=== PATIENT | female | born 1980 | race Caucasian/White ===

== ENCOUNTER 2016-11-06 14:24 | Emergency (ER) | payer MEDICAID ==
[2016-11-06 15:08] LABS: BASO % 0.2 % (0-6); EOS % 0.5 % (0-6); GRAN % 70.2 % (47-80); HEMATOCRIT 41.8 % (35.0-47.0); HEMOGLOBIN 14.1 gm/dl (11.6-16.0); LYMPH % 25.1 % (16-45); MEAN CELL VOLUME 89.3 fl (81-97); MEAN CORPUSCULAR HEMOGLOBIN 30.1 pg (27-33); MEAN CORPUSCULAR HGB CONC 33.7 g/dl (32-36); MEAN PLATELET VOLUME 10.2 fl (7.4-10.4); PLATELET COUNT 179 K/uL (130-400); RED BLOOD COUNT 4.68 M/uL (3.80-5.40); RED CELL DISTRIBUTION WIDTH 14.1 % (11.5-14.5); URINE APPEARANCE CLEAR; URINE BILIRUBIN NEGATIVE (NEGATIVE); URINE BLOOD NEGATIVE (NEGATIVE); URINE COLOR YELLOW; URINE GLUCOSE (UA) NEGATIVE (NEGATIVE); URINE KETONE NEGATIVE (NEGATIVE); URINE LEUKOCYTE ESTERASE NEGATIVE (NEGATIVE); URINE NITRITE NEGATIVE (NEGATIVE); URINE PROTEIN NEGATIVE (NEGATIVE); URINE UROBILINOGEN 0.2 E.U./dL (0.20 - 1.00); WHITE BLOOD COUNT W/O DIFF 9.7 K/uL (4.2-12.2)
[2016-11-06 15:20] LABS: ANION GAP 10.6 (7-16); BLOOD UREA NITROGEN 8 mg/dL (7-17); CARBON DIOXIDE 25.4 mmol/L (22-30); CREATININE 0.8 mg/dL (0.52-1.04); EST GLOMERULAR FILTRATION RATE > 60 ml/min; GLUCOSE,RANDOM 94 mg/dL (70-110)
--- NOTE | 2016-11-06 16:43 | Emergency Department Record ---
History of Present Illness - General Chief complaint: Pain Stated complaint: RT SIDE NECK PAIN,LT SIDE KIDNEY PAIN Time Seen by Provider: 11/06/16 14:42 Source: Patient Mode of Arrival: Ambulatory Limitations: No limitations - History of Present Illness Initial comments: pt woke up with severe r neck pain and l kidney pain Complaint: Neck Pain Onset/Timin -: Days(s) Location: Left, Right, Other History of Same: Yes Severity scale (1-10): 8 Quality: Stabbing Consistency: Constant Improves with: Nothing Worsens with: Nothing Associated Symptoms: Denies other symptoms, Other - Related Data Home Medications Medication Instructions Recorded Confirmed Last Taken No Home Med [NO HOME MEDS] 11/06/16 11/06/16 Unknown Allergies Allergy/AdvReac Type Severity Reaction Status Date / Time latex Allergy RASH Verified 04/17/16 13:17 hydrocodone AdvReac Severe HEADACHE Verified 04/17/16 13:17 Travel Screening - Travel/Exposure Within Last 30 Days Have you traveled within the last 30 days?: No Review of Systems Reviewed: No additional complaints except as noted below Constitutional: Reports: As per HPI. Denies: Chills, Fever, Malaise, Night sweats, Weakness, Weight change Eyes: Reports: As per HPI. Denies: Eye discharge, Eye pain, Photophobia, Vision change ENT: Reports: As per HPI. Denies: Congestion, Dental pain, Ear pain, Epistaxis , Hearing loss, Throat pain Respiratory: Reports: As per HPI. Denies: Cough, Dyspnea, Hemoptysis, Stridor, Wheezes Cardiovascular: Reports: As per HPI. Denies: Arrhythmia, Chest pain, Dyspnea on exertion, Edema, Murmurs, Orthopnea, Palpitations, Paroxysmal nocturnal dyspnea, Rheumatic Fever, Syncope Endocrine: Reports: As per HPI. Denies: Fatigue, Heat or cold intolerance, Polydipsia, Polyuria Gastrointestinal: Reports: As per HPI. Denies: Abdominal pain, Constipation, Diarrhea, Hematemesis, Hematochezia, Melena, Nausea, Vomiting Genitourinary: Reports: As per HPI. Denies: Abnormal menses, Discharge, Dyspareunia, Dysuria, Frequency, Hematuria, Incontinence, Retention, Urgency Musculoskeletal: Reports: As per HPI. Denies: Arthralgia, Back pain, Gout, Joint swelling, Myalgia, Neck pain Skin: Reports: As per HPI. Denies: Bruising, Change in color, Change in hair/ nails, Lesions, Pruritus, Rash Neurological: Reports: As per HPI. Denies: Abnormal gait, Confusion, Headache, Numbness, Paresthesias, Seizure, Tingling, Tremors, Vertigo, Weakness Psychiatric: Reports: As per HPI. Denies: Anxiety, Auditory hallucinations, Depression, Homicidal thoughts, Suicidal thoughts, Visual hallucinations Hematological/Lymphatic: Reports: As per HPI. Denies: Anemia, Blood Clots, Easy bleeding, Easy bruising, Swollen glands Past Medical History - SOCIAL HISTORY Smoking Status: Current every day smoker Alcohol Use: None Drug Use: None - RESPIRATORY Hx Respiratory Disorders: No - CARDIOVASCULAR Hx Cardio Disorders: No - NEURO Hx Neuro Disorders: No - GI Hx GI Disorders: No - Hx Genitourinary Disorders: Yes Hx Kidney Stones: Yes - ENDOCRINE Hx Endocrine Disorders: No - MUSCULOSKELETAL Hx Musculoskeletal Disorders: No - PSYCH Hx Psych Problems: No - HEMATOLOGY/ONCOLOGY Hx Hematology/Oncology Disorders: No Family Medical History Any Significant Family History?: Yes Hx Kidney Disease: Father, Grandparents Hx Stroke: Father Physical Exam - General General Appearance: Alert, Oriented x3, Cooperative, Mild distress - Head Head exam: Normal inspection - Eye Eye exam: Normal appearance, PERRL, EOMI Pupils: Normal accommodation - ENT ENT exam: Normal exam, Mucous membranes moist, Normal external ear exam, Normal orophraynx Ear exam: Normal external inspection. negative: External canal tenderness Nasal Exam: Normal inspection. negative: Discharge, Sinus tenderness Mouth exam: Normal external inspection, Tongue normal Teeth exam: Normal inspection. negative: Dental caries Throat exam: Normal inspection. negative: Tonsillar erythema, Tonsillar exudate - Neck Neck exam: Normal inspection, Full ROM, Tenderness (on r anterior) - Respiratory Respiratory exam: Normal lung sounds bilaterally. negative: Respiratory distress - Cardiovascular Cardiovascular Exam: Regular rate, Normal rhythm, Normal heart sounds - GI/Abdominal GI/Abdominal exam: Soft, Normal bowel sounds. negative: Tenderness - Rectal Rectal exam: Deferred - exam: Deferred - Extremities Extremities exam: Normal inspection, Full ROM, Normal capillary refill. negative: Tenderness - Back Back exam: Reports: Normal inspection, Full ROM. Denies: Muscle spasm, Rash noted, Tenderness - Neurological Neurological exam: Alert, CN II-XII intact, Normal gait, Oriented X3 - Psychiatric Psychiatric exam: Normal affect, Normal mood - Skin Skin exam: Dry, Intact, Normal color, Warm Course Vital Signs 11/06/16 14:32 Temperature 98.2 F Pulse Rate 85 Respiratory 20 Rate Blood Pressure 123/76 Pulse Ox 98 - Reevaluation(s) Reevaluation #1: 11/06/16 17:27 cat scans are neg for acute Medical Decision Making - Lab Data Result diagrams: 11/06/16 15:00 11/06/16 15:00 Lab Results 11/06/16 11/06/16 11/06/16 Range/Units 15:00 15:00 15:00 WBC 9.7 (4.2-12.2) K/uL RBC 4.68 (3.80-5.40) M/uL Hgb 14.1 (11.6-16.0) gm/dl Hct 41.8 (35.0-47.0) % MCV 89.3 (81-97) fl MCH 30.1 (27-33) pg MCHC 33.7 (32-36) g/dl RDW 14.1 (11.5-14.5) % Plt Count 179 (130-400) K/uL MPV 10.2 (7.4-10.4) fl Gran % 70.2 (47-80) % Lymphocytes % 25.1 (16-45) % Monocytes % 4.0 (0-9) % Eosinophils % 0.5 (0-6) % Basophils % 0.2 (0-6) % Sodium 142 (136-145) mmol/L Potassium 3.8 (3.5-5.1) mmol/L Chloride 106 (98-107) mmol/L Carbon Dioxide 25.4 (22-30) mmol/L Anion Gap 10.6 (7-16) BUN 8 (7-17) mg/dL Creatinine 0.8 (0.52-1.04) mg/dL Estimated GFR > 60 ml/min Random Glucose 94 (70-110) mg/dL Calcium 9.7 (8.5-10.1) mg/dL Urine Color Yellow Urine Appearance Clear Urine pH 7.0 (5.0-8.0) Ur Specific [place] <= 1.005 (1.002-1.030) Urine Protein Negative (NEGATIVE) Urine Glucose (UA) Negative (NEGATIVE) Urine Ketones Negative (NEGATIVE) Urine Blood Negative (NEGATIVE) Urine Nitrite Negative (NEGATIVE) Urine Bilirubin Negative (NEGATIVE) Urine Urobilinogen 0.2 (0.20 - 1.00) E.U./dL Ur Leukocyte Esterase Negative (NEGATIVE) Disposition Disposition: Discharge Clinical Impression: Neck pain, Flank pain Disposition: Home, Self-Care Condition: (1) Good Instructions: Flank Pain (ED) Additional Instructions: follow up with family doctor. return sooner if worse Forms: Patient Portal Access
[2016-11-06] MEDS ORDERED: KETOROLAC 30 MG/ML VIAL IVP ONE (17:24)
[2016-11-06] MEDS ORDERED: PROMETHAZINE HCL 25 MG/ML VIAL IVP ONE (17:24)
[2016-11-06] MEDS ORDERED: HYDROMORPHONE HCL 1 MG/ML CPJ IVP ONE (17:25)
--- NOTE | 2016-11-08 13:45 | CT SCAN REPORT ---
EXAM: CT OF THE NECK WITH CONTRAST HISTORY: SEVERE RIGHT SIDED NECK PAIN BEGINNING TWO DAYS AGO. THE PAIN TRAVELS SUPERIORLY INTO THE HEAD. TECHNIQUE: Contrast enhanced helical CT examination of the neck was performed with 100 ml of Omnipaque 300 utilized. Coronal and sagittal reformatted images were generated and reviewed. Comparison: None. FINDINGS: No mucosal pharyngeal space abnormality is identified though evaluation of the larynx is mildly limited as the glottis is closed. The parotid glands and submandibular glands are symmetric and normal in appearance. The thyroid gland is normal in size and enhances homogeneously. No cervical mass nor adenopathy is seen. There is minimal sclerosis of the carotid bulbs without evidence of clinically significant stenosis. No destructive bone lesion is seen. There is a focus of sclerosis within the superior aspect of the T4 vertebral body, incompletely imaged measuring 9 mm in diameter. This is nonspecific though a bone island is the most likely etiology. There is a large retention cyst suggested within the right maxillary sinus and a small retention cyst in the left maxillary sinus. Mild mucosal thickening is present within several bilateral ethmoid air cells and within the sphenoid sinuses. Minor biapical lung scarring is present. The visualized upper lungs are otherwise clear. IMPRESSION: 1. NO CT EVIDENCE OF SUSPICIOUS MASS NOR ACUTE ABNORMALITY OF THE NECK. 2. INCOMPLETELY IMAGED ROUNDED AREA OF SCLEROSIS IN THE SUPERIOR ASPECT OF THE T4 VERTEBRAL BODY MEASURING AT LEAST 9 MM IN DIAMETER. THIS IS NONSPECIFIC, BUT LIKELY A BONE ISLAND. 3. MINOR ATHEROSCLEROSIS OF THE CAROTID BULBS WITHOUT CLINICALLY SIGNIFICANT STENOSIS. JOB NUMBER: [id number] MTDD
--- NOTE | 2016-11-08 14:11 | CT SCAN REPORT ---
EXAM: CT OF THE ABDOMEN AND PELVIS WITHOUT CONTRAST HISTORY: LEFT FLANK PAIN FOR ONE DAY. TECHNIQUE: Thin collimation helical CT examination of the abdomen and pelvis was performed without oral or intravenous contrast administration. Lack of oral and IV contrast utilization limits evaluation of the bowel and solid viscera respectively. Comparison: CT of the abdomen and pelvis without contrast dated 01/05/16. FINDINGS: The lung bases are clear with the exception of minimal linear scarring versus atelectasis in the lateral right lung base. No pleural or pericardial effusion. The heart is not enlarged. The liver, spleen, pancreas and adrenal glands to the extent visualized are normal in appearance. The kidneys remain normal in size, position and are smoothly marginated. No nephrolithiasis nor renal mass is seen. The renal collecting systems are normal in caliber throughout. No ureteral calculus visualized. No intrinsic urinary bladder abnormality identified. The uterus is retroflexed/retroverted. A small amount of free fluid is noted in the cul-de-sac. This is nonspecific though likely physiologic. Follicles are suggested in each ovary with the largest on the right measuring 1.6 cm in diameter. No gross bowel dilatation nor bowel wall thickening is seen. The appendix is visualized and is normal in appearance. Cholesterol gallstones are redemonstrated without gallbladder wall thickening or pericholecystic fluid. 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 IMPRESSION: 1. NO CT EVIDENCE OF AN ACUTE INTRAABDOMINAL NOR INTRAPELVIC PROCESS. SPECIFICALLY, THERE IS NO EVIDENCE OF OBSTRUCTIVE UROPATHY. 2. SMALL AMOUNT OF FREE FLUID IN THE CUL-DE-SAC IS NONSPECIFIC, BUT LIKELY PHYSIOLOGIC. BILATERAL OVARIAN FOLLICLES WITH THE LARGEST LOCATED ON THE RIGHT MEASURING 1.6 CM IN DIAMETER. 3. NORMAL APPENDIX. 4. CHOLELITHIASIS REDEMONSTRATED. JOB NUMBER: [id number] MTDD
== END 2016-11-06 18:07 | disposition home or self-care (01) ==
LOC: ER 14:24
DX: M54.2 Cervicalgia (principal); R10.32 Left lower quadrant pain; Z87.442 Personal history of urinary calculi
CPT/HCPCS: 99284 ×2; 96374; 96375; 85025; 80048; 81003; 70491; 74176; Q9967; J1885; J1170; J2550

== ENCOUNTER 2017-08-17 22:39 | Emergency (ER) | payer MEDICAID ==
[2017-08-17] MEDS ORDERED: ONDANSETRON HCL IV 4 MG/2 ML VIAL IV ONE (22:59)
[2017-08-17] MEDS ORDERED: 0.9 % SODIUM CHLORIDE 1,000 ML BAG IV ONE (22:59)
[2017-08-17] MEDS ORDERED: KETOROLAC 30 MG/ML VIAL IVP ONE (22:59)
--- NOTE | 2017-08-17 23:01 | Emergency Department Record ---
History of Present Illness - General Chief Complaint: Abdominal Pain Stated Complaint: L SIDE ABD PAIN Time Seen by Provider: 08/17/17 22:59 Source: Patient Mode of Arrival: Ambulatory - History of Present Illness Initial Comments: The patient states she has a history of kidney stones and thinks that a kidney stone is stuck because of left flank pain into her groin that has been present for over 24 hours. She denies f,c, URI symptoms, vomiting or diarrhea. She is nauseated and is currently on her menses. MD Complaint: Flank pain Onset/Timin -: Days(s) Location: L Flank Radiation: LLQ Migration to: No migration Severity: Moderate Quality: Sharp Consistency: Intermittent Improves With: Nothing Worsens With: Nothing Associated Symptoms: Nausea, Vomiting - Related Data Patient : No Previous Rx's Medication Instructions Recorded Dicyclomine HCl [Bentyl] 10 mg PO Q8H #10 cap 08/18/17 Ondansetron [Zofran Odt] 4 mg PO Q8H #10 tab.rapdis 08/18/17 Allergies Allergy/AdvReac Type Severity Reaction Status Date / Time latex Allergy RASH Verified 04/17/16 13:17 hydrocodone AdvReac Severe HEADACHE Verified 04/17/16 13:17 Travel Screening - Travel/Exposure Within Last 30 Days Have you traveled within the last 30 days?: No - Travel/Exposure Within Last Year Have you traveled outside the [place] in the last year?: No - Additonal Travel Details Have you been exposed to anyone with a communicable illness?: No Review of Systems Reviewed: No additional complaints except as noted below Constitutional: Reports: As per HPI. Denies: Chills, Fever, Malaise, Night sweats, Weakness, Weight change Eyes: Reports: As per HPI. Denies: Eye discharge, Eye pain, Photophobia, Vision change ENT: Reports: As per HPI. Denies: Congestion, Dental pain, Ear pain, Epistaxis , Hearing loss, Throat pain Respiratory: Reports: As per HPI. Denies: Cough, Dyspnea, Hemoptysis, Stridor, Wheezes Cardiovascular: Reports: As per HPI. Denies: Arrhythmia, Chest pain, Dyspnea on exertion, Edema, Murmurs, Orthopnea, Palpitations, Paroxysmal nocturnal dyspnea, Rheumatic Fever, Syncope Endocrine: Reports: As per HPI. Denies: Fatigue, Heat or cold intolerance, Polydipsia, Polyuria Gastrointestinal: Reports: As per HPI. Denies: Abdominal pain, Constipation, Diarrhea, Hematemesis, Hematochezia, Melena, Nausea, Vomiting Genitourinary: Reports: As per HPI. Denies: Abnormal menses, Discharge, Dyspareunia, Dysuria, Frequency, Hematuria, Incontinence, Retention, Urgency Musculoskeletal: Reports: As per HPI. Denies: Arthralgia, Back pain, Gout, Joint swelling, Myalgia, Neck pain Skin: Reports: As per HPI. Denies: Bruising, Change in color, Change in hair/ nails, Lesions, Pruritus, Rash Neurological: Reports: As per HPI. Denies: Abnormal gait, Confusion, Headache, Numbness, Paresthesias, Seizure, Tingling, Tremors, Vertigo, Weakness Psychiatric: Reports: As per HPI. Denies: Anxiety, Auditory hallucinations, Depression, Homicidal thoughts, Suicidal thoughts, Visual hallucinations Hematological/Lymphatic: Reports: As per HPI. Denies: Anemia, Blood Clots, Easy bleeding, Easy bruising, Swollen glands Past Medical History - SOCIAL HISTORY Smoking Status: Current every day smoker Alcohol Use: None Drug Use: None - RESPIRATORY Hx Respiratory Disorders: No - CARDIOVASCULAR Hx Cardio Disorders: No - NEURO Hx Neuro Disorders: No - GI Hx GI Disorders: No - Hx Genitourinary Disorders: Yes Hx Kidney Stones: Yes - ENDOCRINE Hx Endocrine Disorders: No - MUSCULOSKELETAL Hx Musculoskeletal Disorders: No - PSYCH Hx Psych Problems: No - HEMATOLOGY/ONCOLOGY Hx Hematology/Oncology Disorders: No Family Medical History Any Significant Family History?: Yes Hx Kidney Disease: Father, Grandparents Hx Stroke: Father Physical Exam - General General Appearance: Alert, Oriented x3, Cooperative, No acute distress, Moderate distress - Head Head exam: Normal inspection - Eye Eye exam: Normal appearance, PERRL Pupils: Normal accommodation - ENT ENT exam: Normal exam, Mucous membranes moist, Normal external ear exam, Normal orophraynx, TM's normal bilaterally Ear exam: Normal external inspection. negative: External canal tenderness Nasal Exam: Normal inspection. negative: Discharge, Sinus tenderness Mouth exam: Normal external inspection, Tongue normal Teeth exam: Normal inspection. negative: Dental caries Throat exam: Normal inspection. negative: Tonsillar erythema, Tonsillar exudate - Neck Neck exam: Normal inspection, Full ROM. negative: Tenderness - Respiratory Respiratory exam: Normal lung sounds bilaterally. negative: Respiratory distress - Cardiovascular Cardiovascular Exam: Regular rate, Normal rhythm, Normal heart sounds - GI/Abdominal GI/Abdominal exam: Soft, Normal bowel sounds, Tenderness (Left abdomen into left flank tenderness) - Rectal Rectal exam: Deferred - exam: Deferred - Extremities Extremities exam: Normal inspection, Full ROM, Normal capillary refill. negative: Tenderness - Back Back exam: Reports: Normal inspection, CVA tenderness (L), Full ROM. Denies: Muscle spasm, Rash noted, Tenderness - Neurological Neurological exam: Alert, Normal gait, Oriented X3, Reflexes normal - Psychiatric Psychiatric exam: Normal affect, Normal mood - Skin Skin exam: Dry, Intact, Normal color, Warm Course Vital Signs 08/17/17 22:47 Temperature 98.3 F Pulse Rate 84 Respiratory 20 Rate Blood Pressure 112/76 Pulse Ox 100 - Reevaluation(s) Reevaluation #1: Patient states she does not feel any better. Patient given repeat exam: lungs clear, Left CVA tenderness as before. Abdomen soft without distention, no tenderness in an portion of right abdomen, or epigastrum. Her middle left abdomen and lateral left abdomen are her most tender areas. There is no rebound no rigidity. 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 Patient refused, states she is on her menses, and had her tubes tied years go with no problems /discharge. Her BM's have been regular, she has had 2 today, slightly loose. Will try a bentyl shot and further hydration.. 08/18/17 01:21 Reevaluation #2: Patient is improved with Bentyl and Iv fluids but is not 100%. She wishes to go home to ed and agrees to sees her PCP Dr. Cazares tomorrow in the office without fail. She agrees to return to an E. Dept. sooner if worsened. Will send her home with bentyl and zofran for home. 08/18/17 02:07 Medical Decision Making - Management Options MDM Management: No Additional Work-up Planned - Data Complexity MDM Data: Labs Ordered and/or Reviewed, X-Ray Ordered and/or Reviewed ( Noncontrast Abd/Pelvis CT:No acute bowel pathology deonstrated. Normal appendix. Multiple radiolucent gallstones. Gallbladder partially compressed. No biliary dilatation. Subtle findings of vague hazy fat stranding surrounding a fat appendage adjacent to the ascending colon. No urinary tract stones, hydronephrosis, or evidence of recent stone passage. Urinary bladder appears normal.) - Lab Data Result diagrams: 08/17/17 22:57 08/17/17 22:57 Disposition Disposition: Discharge Clinical Impression: Left sided abdominal pain of unknown cause Disposition: Home, Self-Care Condition: (2) Stable Instructions: Abdominal Pain (ED) Additional Instructions: Home to bed. Do not drive. Zofran as directed for nausea. Bentyl as directed if needed for adominal pain. Follow up with Dr. Cazares in his office Saturday without fail. Return to EDept of choice if worsened sooner. Prescriptions: Dicyclomine HCl [Bentyl] 10 mg PO Q8H #10 cap Ondansetron [Zofran Odt] 4 mg PO Q8H #10 tab.rapdis Quality - Quality Measures Quality Measures: N/A - Blood Pressure Screening Does Patient Have Any of the Following: No Blood Pressure Classification: Normal BP Reading Systolic Measurement: 112 Diastolic Measurement: 76 Screening for High Blood Pressure: < Normal BP, F/U Not Required > [G8783]
[2017-08-17 23:08] LABS: BASO % 0.2 % (0-6); EOS % 1.6 % (0-6); GRAN % 54.6 % (47-80); HEMATOCRIT 39.9 % (35.0-47.0); HEMOGLOBIN 13.5 gm/dl (11.6-16.0); LYMPH % 36.2 % (16-45); MEAN CELL VOLUME 88.3 fl (81-97); MEAN CORPUSCULAR HEMOGLOBIN 29.9 pg (27-33); MEAN CORPUSCULAR HGB CONC 33.8 g/dl (32-36); MONO % 7.4 % (0-9); PLATELET COUNT 200 K/uL (130-400); RED BLOOD COUNT 4.52 M/uL (3.80-5.40); RED CELL DISTRIBUTION WIDTH 14.2 % (11.5-14.5)
[2017-08-17 23:23] LABS: BLOOD UREA NITROGEN 8 mg/dL (6-20); CREATININE 0.7 mg/dL (0.5-0.9); EST GLOMERULAR FILTRATION RATE > 60 mL/min; GLUCOSE,RANDOM 107 mg/dL (74-109); LIPASE 23 U/L (13-60); URINE APPEARANCE CLEAR; URINE BILIRUBIN NEGATIVE (NEGATIVE); URINE BLOOD MODERATE (NEGATIVE); URINE COLOR YELLOW; URINE GLUCOSE (UA) NEGATIVE (NEGATIVE); URINE KETONE NEGATIVE (NEGATIVE); URINE LEUKOCYTE ESTERASE NEGATIVE (NEGATIVE); URINE NITRITE NEGATIVE (NEGATIVE); URINE PROTEIN NEGATIVE (NEGATIVE); URINE UROBILINOGEN 0.2 E.U./dL (0.20 - 1.00)
[2017-08-17 23:29] LABS: HCG,QUALITATIVE URINE NEGATIVE (NEGATIVE); URINE EPITHELIAL CELLS 0 - 2 (FEW); URINE RBC 0-2 (NONE SEEN); URINE WBC 0 - 2 (0-2/hpf)
[2017-08-18] MEDS ORDERED: ACETAMINOPHEN 1,000 MG/100 ML BTL IVPB ONE (00:26)
[2017-08-18 01:19] LABS: AMPHETAMINE SCREEN URINE NOT DETECTED; BARBITURATE SCREEN URINE NOT DETECTED; BENZODIAZEPINE SCREEN URINE NOT DETECTED; COCAINE SCREEN URINE NOT DETECTED; METHADONE SCREEN URINE NOT DETECTED; METHAMPHETAMINE SCREEN NOT DETECTED; OPIATE SCREEN URINE NOT DETECTED; OXYCODONE SCREEN URINE NOT DETECTED; PHENCYCLIDINE SCREEN URINE NOT DETECTED; PROPOXYPHENE SCREEN URINE NOT DETECTED; THC SCREEN URINE DETECTED; TRICYCLIC ANTIDEPRESSANT SCRN NOT DETECTED
[2017-08-18] MEDS ORDERED: DICYCLOMINE HCL 10 MG/ML AMPUL IM ONE (01:26)
[2017-08-18] MEDS ORDERED: 0.9 % SODIUM CHLORIDE 1,000 ML BAG IV ONE (01:27)
--- NOTE | 2017-08-19 08:52 | CT SCAN REPORT ---
EXAM: CT OF THE ABDOMEN AND PELVIS WITHOUT CONTRAST HISTORY: LEFT FLANK PAIN. TECHNIQUE: CT of the abdomen and pelvis was performed without oral or IV contrast. This limits evaluation of the bowel and solid visceral organs. Comparison: Prior CT from 11/06/16. FINDINGS: Limited evaluation of the lung bases is unremarkable. The osseous structures are grossly intact. Limited evaluation of the liver, spleen, adrenal glands, pancreas, and kidneys is unremarkable. Negative for urinary tract calculus or hydronephrosis. Multiple gallstones. No gross evidence for bowel obstruction. No free air or free fluid. Normal appendix. There is an approximately 11 x 11 mm fat density focus near the ascending colon with some minor surrounding inflammation. This could relate to epiploic appendagitis or omental infarct. This is a self limiting process. 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 IMPRESSION: 1. FINDINGS SUSPICIOUS FOR EPIPLOIC APPENDAGITIS OR OMENTAL INFARCT NEAR THE ASCENDING COLON. 2. CHOLELITHIASIS. JOB NUMBER: [id number] MTDD
== END 2017-08-18 02:19 | disposition home or self-care (01) ==
LOC: ER 22:39
DX: R10.32 Left lower quadrant pain (principal); R11.2 Nausea with vomiting, unspecified; Z87.442 Personal history of urinary calculi
CPT/HCPCS: 99284 ×2; 96374; 96372; 96375; 96361; 83690; 85025; 80048; 81001; 81025; 80305; 74176; J1885; J2405; J7030

== ENCOUNTER 2018-05-09 16:49 | Emergency (ER) | payer MEDICAID ==
[2018-05-09] MEDS ORDERED: ORPHENADRINE CITRATE 60MG/2ML VIAL IM ONE (17:28)
[2018-05-09] MEDS ORDERED: HYDROMORPHONE HCL 2 MG/ML VIAL IM ONE (17:28)
[2018-05-09] MEDS ORDERED: KETOROLAC 30 MG/ML VIAL IM ONE (17:28)
[2018-05-09] MEDS ORDERED: PROMETHAZINE HCL 25 MG/ML VIAL IM ONE (17:28)
--- NOTE | 2018-05-09 17:51 | Emergency Department Record ---
History of Present Illness - General Chief Complaint: Back Pain/Injury Stated Complaint: BACK PAIN Time Seen by Provider: 05/09/18 17:16 Source: Patient Mode of Arrival: Ambulatory Limitations: No limitations - History of Present Illness Initial Comments: pts back went out on her a few days ago when she got up from a chair. it hurts in her lower back and radiates down her l leg. she has intermittent numbness in her l foot. she is having no prob with urination and bowel movement MD Complaint: Back pain Onset/Timin -: Days(s) Similar Symptoms Previously: No Place: Home Radiation: Other Severity: Moderate Severity scale (1-10): 8 Quality: Aching Consistency: Constant Improves With: None Worsens With: None Context: Unknown Associated Symptoms: Denies other symptoms - Related Data Previous Rx's Medication Instructions Recorded Cyclobenzaprine HCl [Flexeril] 10 mg PO TID #14 tablet 05/09/18 Hydrocodone/APAP 5/325Mg [[place] 1 each PO Q6H #7 tab 05/09/18 5Mg/325Mg] Ibuprofen [Motrin 600Mg] 600 mg PO Q6H #20 tablet 05/09/18 Ondansetron [Zofran Odt] 4 mg PO Q8H #7 tab.rapdis 05/09/18 Allergies Allergy/AdvReac Type Severity Reaction Status Date / Time latex Allergy RASH Verified 05/09/18 16:59 hydrocodone AdvReac Severe HEADACHE Verified 05/09/18 16:59 Travel Screening - Travel/Exposure Within Last 30 Days Have you traveled within the last 30 days?: No Review of Systems Reviewed: No additional complaints except as noted below Constitutional: Reports: As per HPI. Denies: Chills, Fever, Malaise, Night sweats, Weakness, Weight change Eyes: Reports: As per HPI. Denies: Eye discharge, Eye pain, Photophobia, Vision change ENT: Reports: As per HPI. Denies: Congestion, Dental pain, Ear pain, Epistaxis , Hearing loss, Throat pain Respiratory: Reports: As per HPI. Denies: Cough, Dyspnea, Hemoptysis, Stridor, Wheezes Cardiovascular: Reports: As per HPI. Denies: Arrhythmia, Chest pain, Dyspnea on exertion, Edema, Murmurs, Orthopnea, Palpitations, Paroxysmal nocturnal dyspnea, Rheumatic Fever, Syncope Endocrine: Reports: As per HPI. Denies: Fatigue, Heat or cold intolerance, Polydipsia, Polyuria Gastrointestinal: Reports: As per HPI. Denies: Abdominal pain, Constipation, Diarrhea, Hematemesis, Hematochezia, Melena, Nausea, Vomiting Genitourinary: Reports: As per HPI. Denies: Abnormal menses, Discharge, Dyspareunia, Dysuria, Frequency, Hematuria, Incontinence, Retention, Urgency Musculoskeletal: Reports: As per HPI, Back pain. Denies: Arthralgia, Gout, Joint swelling, Myalgia, Neck pain Skin: Reports: As per HPI. Denies: Bruising, Change in color, Change in hair/ nails, Lesions, Pruritus, Rash Neurological: Reports: As per HPI. Denies: Abnormal gait, Confusion, Headache, Numbness, Paresthesias, Seizure, Tingling, Tremors, Vertigo, Weakness Psychiatric: Reports: As per HPI. Denies: Anxiety, Auditory hallucinations, Depression, Homicidal thoughts, Suicidal thoughts, Visual hallucinations Hematological/Lymphatic: Reports: As per HPI. Denies: Anemia, Blood Clots, Easy bleeding, Easy bruising, Swollen glands Past Medical History - SOCIAL HISTORY Smoking Status: Current every day smoker Alcohol Use: None Drug Use: None - RESPIRATORY Hx Respiratory Disorders: No - CARDIOVASCULAR Hx Cardio Disorders: No - NEURO Hx Neuro Disorders: No - GI Hx GI Disorders: No - Hx Genitourinary Disorders: Yes Hx Kidney Stones: Yes - ENDOCRINE Hx Endocrine Disorders: No - MUSCULOSKELETAL Hx Musculoskeletal Disorders: No - PSYCH Hx Psych Problems: No - HEMATOLOGY/ONCOLOGY Hx Hematology/Oncology Disorders: No Family Medical History Any Significant Family History?: Yes Hx Kidney Disease: Father, Grandparents Hx Stroke: Father Physical Exam - General General Appearance: Alert, Oriented x3, Cooperative, Mild distress - Head Head exam: Normal inspection - Eye Eye exam: Normal appearance, PERRL, EOMI Pupils: Normal accommodation - ENT ENT exam: Normal exam, Mucous membranes moist, Normal external ear exam, Normal orophraynx Ear exam: Normal external inspection. negative: External canal tenderness Nasal Exam: Normal inspection. negative: Discharge, Sinus tenderness Mouth exam: Normal external inspection, Tongue normal Teeth exam: Normal inspection. negative: Dental caries Throat exam: Normal inspection. negative: Tonsillar erythema, Tonsillar exudate - Neck Neck exam: Normal inspection, Full ROM. negative: Tenderness - Respiratory Respiratory exam: Normal lung sounds bilaterally. negative: Respiratory distress - Cardiovascular Cardiovascular Exam: Regular rate, Normal rhythm, Normal heart sounds - GI/Abdominal GI/Abdominal exam: Soft, Normal bowel sounds. negative: Tenderness - Rectal Rectal exam: Deferred - exam: Deferred - Extremities Extremities exam: Normal inspection, Full ROM, Normal capillary refill. negative: Tenderness - Back Back exam: Reports: Muscle spasm, Tenderness. Denies: Full ROM, Rash noted - Neurological Neurological exam: Alert, CN II-XII intact, Normal gait, Oriented X3 - Psychiatric Psychiatric exam: Normal affect, Normal mood - Skin Skin exam: Dry, Intact, Normal color, Warm Course Vital Signs 05/09/18 17:00 Temperature 98.8 F Pulse Rate 89 Respiratory 18 Rate Blood Pressure 123/78 Pulse Ox 97 Disposition Disposition: Discharge Clinical Impression: Lumbar strain Qualifiers: Encounter type: initial encounter Qualified Code(s): S39.012A - Strain of muscle, fascia and tendon of lower back, initial encounter Sciatica Qualifiers: Laterality: left Qualified Code(s): M54.32 - Sciatica, left side Disposition: Home, Self-Care Condition: (1) Good Instructions: Low Back Strain (ED), Sciatica (ED), Lumbar Radiculopathy (ED) Additional Instructions: follow up with family doctor. return sooner if worse. no lifting over 5 pounds for 5 days. ice and moist heat to back Prescriptions: Cyclobenzaprine HCl [Flexeril] 10 mg PO TID #14 tablet Hydrocodone/APAP 5/325Mg [[place] 5Mg/325Mg] 1 each PO Q6H #7 tab Ibuprofen [Motrin 600Mg] 600 mg PO Q6H #20 tablet Ondansetron [Zofran Odt] 4 mg PO Q8H #7 tab.rapdis Quality - Quality Measures Quality Measures: N/A - Blood Pressure Screening Does Patient Have Any of the Following: No Blood Pressure Classification: Pre-Hypertensive BP Reading Systolic Measurement: 123 Diastolic Measurement: 78 Screening for High Blood Pressure: < Pre-Hypertensive BP, F/U Documented > [ G8950] Pre-Hypertensive Follow-up Interventions: Follow-up with rescreen every year.
== END 2018-05-09 18:30 | disposition home or self-care (01) ==
LOC: ER 16:49
DX: S39.012A Strain of muscle, fascia and tendon of lower back, initial encounter (principal); M54.32 Sciatica, left side; F17.200 Nicotine dependence, unspecified, uncomplicated; X50.0XXA Overexertion from strenuous movement or load, initial encounter; X50.9XXA Other and unspecified overexertion or strenuous movements or postures, initial encounter; Y92.009 Unspecified place in unspecified non-institutional (private) residence as the place of occurrence of the external cause
CPT/HCPCS: 99283 ×2; 96372; J1885; J1170; J2360; J2550

== ENCOUNTER 2018-05-26 22:04 | Emergency (ER) | payer MEDICAID ==
[2018-05-26] MEDS ORDERED: ORPHENADRINE CITRATE 60MG/2ML VIAL IM ONE (22:28)
[2018-05-26] MEDS ORDERED: KETOROLAC 30 MG/ML VIAL IM ONE (22:28)
--- NOTE | 2018-05-26 22:30 | Emergency Department Record ---
History of Present Illness - General Chief Complaint: Back Pain/Injury Stated Complaint: LOWER BACK/HIP PAIN Time Seen by Provider: 05/26/18 22:12 Source: Patient Mode of Arrival: Ambulatory Limitations: No limitations - History of Present Illness Initial Comments: The patient is here due to R lower back pain for 2 days. She has had similar problems multiple times in the past and last was here about 2.5 weeks ago for the same thing. The pain is sharp and stabbing in the R low back and intermittently radiates down the R leg and is associated with mild R leg tingling. The pain is much worse with any movement and twisting. She is able to get up and walk and denies any leg numbness or weakness and also denies any bowel or bladder issues. The patient has seen her PCP for it and was told if it persisted she would need an MRI. Complaint: Back pain Onset/Timin -: Days(s) Place: Home Severity scale (1-10): 9 Quality: Sharp Consistency: Constant, Getting worse Improves With: None Worsens With: None Context: Other Associated Symptoms: Denies other symptoms - Related Data Previous Rx's Medication Instructions Recorded Ibuprofen [Motrin 600Mg] 600 mg PO Q6H #20 tablet 05/09/18 Methylprednisolone [Medrol Dose 4 mg PO DAILY #1 tab.ds.pk 05/26/18 Pack] Naproxen [Naprosyn] 500 mg PO BID #14 tablet. 05/26/18 Allergies Allergy/AdvReac Type Severity Reaction Status Date / Time latex Allergy RASH Verified 05/09/18 16:59 hydrocodone AdvReac Severe HEADACHE Verified 05/09/18 16:59 Travel Screening - Travel/Exposure Within Last 30 Days Have you traveled within the last 30 days?: No Review of Systems Constitutional: Denies: Chills, Fever Eyes: Denies: Eye discharge ENT: Denies: Congestion Respiratory: Denies: Cough, Dyspnea Past Medical History - SOCIAL HISTORY Smoking Status: Current every day smoker Alcohol Use: None Drug Use: None - RESPIRATORY Hx Respiratory Disorders: No - CARDIOVASCULAR Hx Cardio Disorders: No - NEURO Hx Neuro Disorders: No - GI Hx GI Disorders: No - Hx Genitourinary Disorders: Yes Hx Kidney Stones: Yes - ENDOCRINE Hx Endocrine Disorders: No - MUSCULOSKELETAL Hx Musculoskeletal Disorders: No - PSYCH Hx Psych Problems: No - HEMATOLOGY/ONCOLOGY Hx Hematology/Oncology Disorders: No Family Medical History Any Significant Family History?: Yes Hx Kidney Disease: Father, Grandparents Hx Stroke: Father Physical Exam - General General Appearance: Alert, Oriented x3, Cooperative, Mild distress (due to back pain.) - Head Head exam: Atraumatic, Normocephalic, Normal inspection - Eye Eye exam: Normal appearance, PERRL - Neck Neck exam: Normal inspection, Full ROM. negative: Tenderness - Respiratory Respiratory exam: Normal lung sounds bilaterally. negative: Respiratory distress - Cardiovascular Cardiovascular Exam: Regular rate, Normal rhythm, Normal heart sounds - GI/Abdominal GI/Abdominal exam: Soft, Normal bowel sounds. negative: Tenderness - Extremities Extremities exam: Normal inspection, Full ROM, Normal capillary refill, Other ( Neg SLR bilaterally.). negative: Tenderness - Back Back exam: Reports: Normal inspection, Paraspinal tenderness (R lower lumbar L4- 5 area paraspinal only.). Denies: Muscle spasm, Vertebral tenderness - Neurological Neurological exam: Alert, Normal gait, Oriented X3, Reflexes normal. negative: Abnormal gait, Altered, Motor sensory deficit Course Vital Signs 05/26/18 22:11 Temperature 98.6 F Pulse Rate [ 94 H Pulse Ox Probe] Respiratory 22 Rate Blood Pressure 127/84 [Left Arm] Pulse Ox 98 - Reevaluation(s) Reevaluation #1: The patient is doing a lot better at this time. Her pain is improved and she is ready for home. She is to see her PCP tomorrow to get the MRI scheduled. 05/26/18 23:23 Disposition Disposition: Discharge Clinical Impression: Low back pain Qualifiers: Chronicity: acute Back pain laterality: right Sciatica presence: unspecified whether sciatica present Qualified Code(s): M54.5 - Low back pain Disposition: Home, Self-Care Condition: (2) Stable Instructions: Low Back Strain (ED) Additional Instructions: Please rest with no lifting and take your home pain medicines as directed along with the Medrol Dose pack. Please see your family doctor for recheck this week and to have the MRI scheduled. Return to the ER for any worsening pain, any leg numbness, weakness, or any bowel or bladder issues. Prescriptions: Methylprednisolone [Medrol Dose Pack] 4 mg PO DAILY #1 tab.ds.pk Naproxen [Naprosyn] 500 mg PO BID #14 tablet.dr Forms: Patient Portal Access Time of Disposition: 23:27 Quality - Quality Measures Quality Measures: N/A - Blood Pressure Screening View Details: Yes Does Patient Have Any of the Following: No Blood Pressure Classification: Pre-Hypertensive BP Reading Systolic Measurement: 127 Diastolic Measurement: 84 Screening for High Blood Pressure: < Pre-Hypertensive BP, F/U Documented > [ G8950] Pre-Hypertensive Follow-up Interventions: Referral to alternative/primary care provider.
[2018-05-26] MEDS ORDERED: MORPHINE SULFATE 10 MG/ML VIAL IM ONE (23:02)
[2018-05-26] MEDS ORDERED: ONDANSETRON 4 MG ODT TABLET SL ONE (23:02)
== END 2018-05-26 23:46 | disposition home or self-care (01) ==
LOC: ER 22:04
DX: M54.5 Low back pain (principal); F17.210 Nicotine dependence, cigarettes, uncomplicated
CPT/HCPCS: 99283 ×2; J1885; J2270; J2360

== ENCOUNTER 2018-08-19 09:20 | Emergency (ER) | payer MEDICAID ==
[2018-08-19] MEDS ORDERED: HYDROMORPHONE HCL 2 MG/ML VIAL IVP ONE ×3 (09:40→10:10)
[2018-08-19] MEDS ORDERED: ONDANSETRON HCL IV 4 MG/2 ML VIAL IVP ONE (09:40)
--- NOTE | 2018-08-19 09:49 | Emergency Department Record ---
History of Present Illness - General Chief Complaint: Back Pain/Injury Stated Complaint: BACK PAIN Time Seen by Provider: 08/19/18 09:32 Source: Patient Mode of Arrival: Ambulatory Limitations: No limitations - History of Present Illness Initial Comments: pt bent over to close rabbit cage door last night and felt a pop in her back. she has had horrible pain ever since. this morning she had loss of bladder control and did not know she had to go. she denies numbness. Complaint: Back pain Onset/Timin -: Hour(s) Place: Home Radiation: None Severity scale (1-10): 9 Quality: Aching, Sharp, Stabbing Consistency: Constant Improves With: None Worsens With: Movement Context: Bending Associated Symptoms: Nausea/vomiting - Related Data Home Medications Medication Instructions Recorded Confirmed Last Taken No Home Med [NO HOME MEDS] 08/19/18 08/19/18 Unknown Allergies Allergy/AdvReac Type Severity Reaction Status Date / Time latex Allergy RASH Verified 08/19/18 09:29 hydrocodone AdvReac Severe HEADACHE Verified 08/19/18 09:29 Travel Screening - Travel/Exposure Within Last 30 Days Have you traveled within the last 30 days?: No - Travel/Exposure Within Last Year Have you traveled outside the [place] in the last year?: No - Additonal Travel Details Have you been exposed to anyone with a communicable illness?: No - Travel Symptoms Symptom Screening: None Review of Systems Reviewed: No additional complaints except as noted below Constitutional: Reports: As per HPI. Denies: Chills, Fever, Malaise, Night sweats, Weakness, Weight change Eyes: Reports: As per HPI. Denies: Eye discharge, Eye pain, Photophobia, Vision change ENT: Reports: As per HPI. Denies: Congestion, Dental pain, Ear pain, Epistaxis , Hearing loss, Throat pain Respiratory: Reports: As per HPI. Denies: Cough, Dyspnea, Hemoptysis, Stridor, Wheezes Cardiovascular: Reports: As per HPI. Denies: Arrhythmia, Chest pain, Dyspnea on exertion, Edema, Murmurs, Orthopnea, Palpitations, Paroxysmal nocturnal dyspnea, Rheumatic Fever, Syncope Endocrine: Reports: As per HPI. Denies: Fatigue, Heat or cold intolerance, Polydipsia, Polyuria Gastrointestinal: Reports: As per HPI. Denies: Abdominal pain, Constipation, Diarrhea, Hematemesis, Hematochezia, Melena, Nausea, Vomiting Genitourinary: Reports: As per HPI. Denies: Abnormal menses, Discharge, Dyspareunia, Dysuria, Frequency, Hematuria, Incontinence, Retention, Urgency Musculoskeletal: Reports: As per HPI. Denies: Arthralgia, Back pain, Gout, Joint swelling, Myalgia, Neck pain Skin: Reports: As per HPI. Denies: Bruising, Change in color, Change in hair/ nails, Lesions, Pruritus, Rash Neurological: Reports: As per HPI. Denies: Abnormal gait, Confusion, Headache, Numbness, Paresthesias, Seizure, Tingling, Tremors, Vertigo, Weakness Psychiatric: Reports: As per HPI. Denies: Anxiety, Auditory hallucinations, Depression, Homicidal thoughts, Suicidal thoughts, Visual hallucinations Hematological/Lymphatic: Reports: As per HPI. Denies: Anemia, Blood Clots, Easy bleeding, Easy bruising, Swollen glands Past Medical History - SOCIAL HISTORY Smoking Status: Current every day smoker Alcohol Use: None Drug Use: None - RESPIRATORY Hx Respiratory Disorders: No - CARDIOVASCULAR Hx Cardio Disorders: No - NEURO Hx Neuro Disorders: No - GI Hx GI Disorders: No - Hx Genitourinary Disorders: Yes Hx Kidney Stones: Yes - ENDOCRINE Hx Endocrine Disorders: No - MUSCULOSKELETAL Hx Musculoskeletal Disorders: No - PSYCH Hx Psych Problems: No - HEMATOLOGY/ONCOLOGY Hx Hematology/Oncology Disorders: No Family Medical History Any Significant Family History?: No Hx Kidney Disease: Father, Grandparents Hx Stroke: Father Physical Exam - General General Appearance: Alert, Oriented x3, Cooperative, No acute distress - Head Head exam: Normal inspection - Eye Eye exam: Normal appearance, PERRL, EOMI Pupils: Normal accommodation - ENT ENT exam: Normal exam, Mucous membranes moist, Normal external ear exam, Normal orophraynx Ear exam: Normal external inspection. negative: External canal tenderness Nasal Exam: Normal inspection. negative: Discharge, Sinus tenderness Mouth exam: Normal external inspection, Tongue normal Teeth exam: Normal inspection. negative: Dental caries Throat exam: Normal inspection. negative: Tonsillar erythema, Tonsillar exudate - Neck Neck exam: Normal inspection, Full ROM. negative: Tenderness - Respiratory Respiratory exam: Normal lung sounds bilaterally. negative: Respiratory distress - Cardiovascular Cardiovascular Exam: Normal rhythm, Normal heart sounds, Tachycardia - GI/Abdominal GI/Abdominal exam: Soft, Normal bowel sounds. negative: Tenderness - Rectal Rectal exam: Deferred - exam: Deferred - Extremities Extremities exam: Normal inspection, Full ROM, Normal capillary refill. negative: Tenderness - Back Back exam: Reports: Full ROM, Muscle spasm, Tenderness, Vertebral tenderness. Denies: Rash noted - Neurological Neurological exam: Alert, CN II-XII intact, Oriented X3. negative: Normal gait - Psychiatric Psychiatric exam: Normal affect, Normal mood - Skin Skin exam: Dry, Intact, Normal color, Warm Course Vital Signs 08/19/18 09:22 Temperature 97.6 F Pulse Rate 107 H Respiratory 20 Rate Blood Pressure 146/84 Pulse Ox 99 Disposition Disposition: Transfer Clinical Impression: Cauda equina compression Loss of bladder control Qualifiers: Urinary Incontinence type: unspecified incontinence Qualified Code(s): R32 - Unspecified urinary incontinence Disposition: Acute Care Hospital Transfer Transfer To: [facility] Reason For Transfer: back pain w loss of bladder control Accepting Physician: dr villanueva Time Discussed w/Accepting Physician: 10:28 Forms: Patient Portal Access Quality - Quality Measures Quality Measures: N/A - Blood Pressure Screening Does Patient Have Any of the Following: No Blood Pressure Classification: Pre-Hypertensive BP Reading Systolic Measurement: 146 Diastolic Measurement: 84 Screening for High Blood Pressure: < Pre-Hypertensive BP, F/U Documented > [ G8950] Pre-Hypertensive Follow-up Interventions: Follow-up with rescreen every year.
== END 2018-08-19 10:50 | disposition short-term general hospital (02) ==
LOC: ER 09:20
DX: G83.4 Cauda equina syndrome (principal); R11.2 Nausea with vomiting, unspecified; R32 Unspecified urinary incontinence; F17.210 Nicotine dependence, cigarettes, uncomplicated
CPT/HCPCS: 99285 ×2; 96374; 96375; J2405; J1170

== ENCOUNTER 2019-01-05 23:17 | Day surgery (SDC) | payer MEDICAID ==
[2019-01-05] MEDS ORDERED: MIDAZOLAM HCL 2MG/2ML VIAL IV ONE (23:18)
[2019-01-05] MEDS ORDERED: LIDOCAINE 2% MDV (20MG/ML) 20ML VIAL IV ONE (23:18)
[2019-01-05] MEDS ORDERED: SUCCINYLCHOLINE 20 MG/ML 10ML IVP ONE (23:18)
[2019-01-05] MEDS ORDERED: ROCURONIUM BROMIDE 50MG/5ML VIAL IV ONE (23:18)
[2019-01-05] MEDS ORDERED: PROPOFOL 10 MG/ML VIAL IV ONE (23:18)
[2019-01-05] MEDS ORDERED: SEVOFLURANE 250 ML INH ONE (23:18)
[2019-01-05] MEDS ORDERED: GLYCOPYRROLATE 0.2 MG/ML ML IV ONE (23:18)
[2019-01-05] MEDS ORDERED: ONDANSETRON HCL IV 4 MG/2 ML VIAL IVP ONE (23:18)
[2019-01-05] MEDS ORDERED: FENTANYL PF 100MCG/2ML VIAL IV ONE (23:18)
[2019-01-05] MEDS ORDERED: KETOROLAC 30 MG/ML VIAL IVP ONE ×2 (23:18→23:40)
[2019-01-05] MEDS ORDERED: NEOSTIGMINE 1 MG/1 ML,10ML VIAL IV ONE (23:18)
[2019-01-05] MEDS ORDERED: 0.9 % SODIUM CHLORIDE 1,000 ML BAG IV ONE (23:40)
[2019-01-05] MEDS ORDERED: ONDANSETRON HCL IV 4 MG/2 ML VIAL IV ONE (23:40)
[2019-01-05 23:48] LABS: BASO % 0.7 % (0-6); EOS % 2.5 % (0-6); GRAN % 46.6 % (47-80); HEMATOCRIT 42.8 % (35.0-47.0); HEMOGLOBIN 14.4 gm/dl (11.6-16.0); LYMPH % 41.5 % (16-45); MEAN CELL VOLUME 90.5 fl (81-97); MEAN CORPUSCULAR HEMOGLOBIN 30.4 pg (27-33); MEAN CORPUSCULAR HGB CONC 33.6 g/dl (32-36); MEAN PLATELET VOLUME 10.7 fl (7.4-10.4); MONO % 8.7 % (0-9); PLATELET COUNT 145 K/uL (130-400); RED BLOOD COUNT 4.73 M/uL (3.80-5.40); RED CELL DISTRIBUTION WIDTH 14.9 % (11.5-14.5); WHITE BLOOD COUNT W/O DIFF 7.3 K/uL (4.2-12.2)
[2019-01-06 00:02] LABS: BLOOD UREA NITROGEN 12 mg/dL (6-20); CREATININE 0.7 mg/dL (0.5-0.9); EST GLOMERULAR FILTRATION RATE > 60 mL/min
[2019-01-06 00:03] LABS: LIPASE 25 U/L (13-60); TOTAL PROTEIN 7.4 g/dL (6.6-8.7)
[2019-01-06 00:05] LABS: GLUCOSE,RANDOM 129 mg/dL (74-109)
[2019-01-06 00:07] LABS: ALB/GLOB RATIO 1.6 (1.1-1.8); ALBUMIN 4.6 g/dL (4.0-5.0); ALKALINE PHOSPHATASE 96 U/L (35-104); ALT/SGPT 11 U/L (<33); AST/SGOT 15 U/L (10.0-35.0)
--- NOTE | 2019-01-06 00:07 | Emergency Department Record ---
History of Present Illness - General Chief Complaint: Chest Pain Stated Complaint: CHEST PRESSURE/SHOULDER/ABDOMINAL PAIN Time Seen by Provider: 01/05/19 23:32 Source: Patient Mode of Arrival: Ambulatory Limitations: No limitations - History of Present Illness Initial Comments: pt had a sudden onset of ruq ap that radiates to the back and to the right shoulder. she has nausea. the pain is sharp. she said she only had a few crackers for dinner prior to the pain MD Complaint: Other Onset/Timin -: Minutes(s) Onset: During rest Pain Location: Right chest Pain Radiation: RUE, Abdomen Severity: Severe Quality: Heaviness, Sharp Consistency: Constant Improves With: Nothing Worsens With: Nothing Anginal Symptoms: Nausea Other Symptoms: Acid taste in mouth - Related Data Allergies Allergy/AdvReac Type Severity Reaction Status Date / Time latex Allergy RASH Verified 08/19/18 09:29 hydrocodone AdvReac Severe HEADACHE Verified 08/19/18 09:29 Travel Screening - Travel/Exposure Within Last 30 Days Have you traveled within the last 30 days?: No Review of Systems Reviewed: No additional complaints except as noted below Constitutional: Reports: As per HPI. Denies: Chills, Fever, Malaise, Night sweats, Weakness, Weight change Eyes: Reports: As per HPI. Denies: Eye discharge, Eye pain, Photophobia, Vision change ENT: Reports: As per HPI. Denies: Congestion, Dental pain, Ear pain, Epistaxis , Hearing loss, Throat pain Respiratory: Reports: As per HPI. Denies: Cough, Dyspnea, Hemoptysis, Stridor, Wheezes Cardiovascular: Reports: As per HPI. Denies: Arrhythmia, Chest pain, Dyspnea on exertion, Edema, Murmurs, Orthopnea, Palpitations, Paroxysmal nocturnal dyspnea, Rheumatic Fever, Syncope Endocrine: Reports: As per HPI. Denies: Fatigue, Heat or cold intolerance, Polydipsia, Polyuria Gastrointestinal: Reports: As per HPI, Abdominal pain, Nausea. Denies: Constipation, Diarrhea, Hematemesis, Hematochezia, Melena, Vomiting Genitourinary: Reports: As per HPI. Denies: Abnormal menses, Discharge, Dyspareunia, Dysuria, Frequency, Hematuria, Incontinence, Retention, Urgency Musculoskeletal: Reports: As per HPI. Denies: Arthralgia, Back pain, Gout, Joint swelling, Myalgia, Neck pain Skin: Reports: As per HPI. Denies: Bruising, Change in color, Change in hair/ nails, Lesions, Pruritus, Rash Neurological: Reports: As per HPI. Denies: Abnormal gait, Confusion, Headache, Numbness, Paresthesias, Seizure, Tingling, Tremors, Vertigo, Weakness Psychiatric: Reports: As per HPI. Denies: Anxiety, Auditory hallucinations, Depression, Homicidal thoughts, Suicidal thoughts, Visual hallucinations Hematological/Lymphatic: Reports: As per HPI. Denies: Anemia, Blood Clots, Easy bleeding, Easy bruising, Swollen glands Past Medical History - SOCIAL HISTORY Smoking Status: Current every day smoker Alcohol Use: None Drug Use: None - RESPIRATORY Hx Respiratory Disorders: No - CARDIOVASCULAR Hx Cardio Disorders: No - NEURO Hx Neuro Disorders: No - GI Hx GI Disorders: No - Hx Genitourinary Disorders: Yes Hx Kidney Stones: Yes - ENDOCRINE Hx Endocrine Disorders: No - MUSCULOSKELETAL Hx Musculoskeletal Disorders: No - PSYCH Hx Psych Problems: No - HEMATOLOGY/ONCOLOGY Hx Hematology/Oncology Disorders: No Family Medical History Any Significant Family History?: Yes Hx Kidney Disease: Father, Grandparents Hx Stroke: Father Physical Exam - General General Appearance: Alert, Oriented x3, Cooperative, Mild distress - Head Head exam: Normal inspection - Eye Eye exam: Normal appearance, PERRL, EOMI Pupils: Normal accommodation - ENT ENT exam: Normal exam, Mucous membranes moist, Normal external ear exam, Normal orophraynx, TM's normal bilaterally Ear exam: Normal external inspection. negative: External canal tenderness Nasal Exam: Normal inspection. negative: Discharge, Sinus tenderness Mouth exam: Normal external inspection, Tongue normal Teeth exam: Normal inspection. negative: Dental caries Throat exam: Normal inspection. negative: Tonsillar erythema, Tonsillar exudate - Neck Neck exam: Normal inspection, Full ROM. negative: Tenderness - Respiratory Respiratory exam: Normal lung sounds bilaterally. negative: Respiratory distress - Cardiovascular Cardiovascular Exam: Normal rhythm, Normal heart sounds, Tachycardia - GI/Abdominal GI/Abdominal exam: Soft, Normal bowel sounds, Tenderness (ruq) - Rectal Rectal exam: Deferred - exam: Deferred - Extremities Extremities exam: Normal inspection, Full ROM, Normal capillary refill. negative: Tenderness - Back Back exam: Reports: Normal inspection, Full ROM. 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 01/06/19 01:57 pt still in pain Medical Decision Making - Lab Data Result diagrams: 01/05/19 23:33 01/05/19 23:33 Lab Results 01/05/19 Range/Units 23:33 WBC 7.3 (4.2-12.2) K/uL RBC 4.73 (3.80-5.40) M/uL Hgb 14.4 (11.6-16.0) gm/dl Hct 42.8 (35.0-47.0) % MCV 90.5 (81-97) fl MCH 30.4 (27-33) pg MCHC 33.6 (32-36) g/dl RDW 14.9 H (11.5-14.5) % Plt Count 145 (130-400) K/uL MPV 10.7 H (7.4-10.4) fl Gran % 46.6 L (47-80) % Lymphocytes % 41.5 (16-45) % Monocytes % 8.7 (0-9) % Eosinophils % 2.5 (0-6) % Basophils % 0.7 (0-6) % Disposition Disposition: Admit Clinical Impression: Cholecystitis Disposition: Home, Self-Care Decision to Admit: Admit from ER Decision to Admit Date: 01/06/19 Decision to Admit Time: 01:59 Forms: Patient Portal Access Quality - Quality Measures Quality Measures: N/A - Blood Pressure Screening Does Patient Have Any of the Following: No Blood Pressure Classification: Hypertensive Reading Systolic Measurement: 157 Diastolic Measurement: 72 Screening for High Blood Pressure: < First Hypertensive BP, F/U Documented > [ G8950] First Hypertensive Follow-up Interventions: Follow-up with rescreen GT 1 day and LT 4 weeks.
[2019-01-06 00:44] LABS: URINE APPEARANCE CLEAR; URINE BILIRUBIN NEGATIVE (NEGATIVE); URINE BLOOD NEGATIVE (NEGATIVE); URINE COLOR YELLOW; URINE GLUCOSE (UA) NEGATIVE (NEGATIVE); URINE KETONE NEGATIVE (NEGATIVE); URINE LEUKOCYTE ESTERASE NEGATIVE (NEGATIVE); URINE NITRITE NEGATIVE (NEGATIVE); URINE PROTEIN NEGATIVE (NEGATIVE); URINE UROBILINOGEN 0.2 E.U./dL (0.20 - 1.00)
[2019-01-06] MEDS ORDERED: HYDROMORPHONE HCL 2 MG/ML VIAL IVP ONE (01:46)
[2019-01-06] MEDS ORDERED: CEFTRIAXONE 1GM/50ML BAG 1 GM/50 ML BAG IVPB ONE (01:48)
[2019-01-06] MEDS ORDERED: PIPERACILLIN SODIUM/TAZOBACTAM 3.375 GM in 0.9 % SODIUM CHLORIDE 100ML 100 ML IVPB ONE (01:52)
[2019-01-06] MEDS ORDERED: ONDANSETRON HCL IV 4 MG/2 ML VIAL IVP ONE (02:11)
[2019-01-06] MEDS ORDERED: ONDANSETRON HCL IV 4 MG/2 ML VIAL IVP PRN (02:23)
[2019-01-06] MEDS: 0.9 % SODIUM CHLORIDE 1000ML 1,000 ML IV PRN ×2 (02:37→11:07)
[2019-01-06] MEDS: HYDROMORPHONE HCL 2 MG/ML VIAL IV PRN ×2 (02:47→07:46)
[2019-01-06 06:59] LABS: BASO % 0.3 % (0-6); EOS % 1.9 % (0-6); GRAN % 58.2 % (47-80); HEMATOCRIT 37.8 % (35.0-47.0); HEMOGLOBIN 12.3 gm/dl (11.6-16.0); LYMPH % 31.4 % (16-45); MEAN CELL VOLUME 90.2 fl (81-97); MEAN CORPUSCULAR HEMOGLOBIN 29.4 pg (27-33); MEAN CORPUSCULAR HGB CONC 32.5 g/dl (32-36); MEAN PLATELET VOLUME 10.6 fl (7.4-10.4); MONO % 8.2 % (0-9); PLATELET COUNT 175 K/uL (130-400); RED BLOOD COUNT 4.19 M/uL (3.80-5.40); RED CELL DISTRIBUTION WIDTH 14.6 % (11.5-14.5); WHITE BLOOD COUNT W/O DIFF 6.3 K/uL (4.2-12.2)
--- NOTE | 2019-01-06 07:03 | CT SCAN REPORT ---
EXAM: CT SCAN OF THE ABDOMEN AND PELVIS WITHOUT CONTRAST HISTORY: CHEST PAIN AND RIGHT UPPER QUADRANT ABDOMINAL PAIN. TECHNIQUE: Standard CT imaging of the abdomen and pelvis was performed without contrast. Comparison: 08/17/17. FINDINGS: There is minor dependent atelectasis at the lung bases. The lung bases are otherwise clear. The liver parenchyma is normal. Multiple stones are present within the gallbladder. The gallbladder is only partially distended. The wall appears mildly thickened which may be artifactual due to the incomplete distention. There is very minor adjacent fat stranding. There is no discrete pericholecystic fluid. There is no biliary ductal dilatation. The pancreas, spleen, adrenal glands, kidneys, and ureters are normal. The aorta is normal in caliber. There is no retroperitoneal lymphadenopathy. The large and small bowel loops are normal. A small round area of fat stranding adjacent to the ascending colon is unchanged from the previous examination. This likely reflects an area of previous epiploic appendagitis. No acute findings are identified. There is no ascites or pneumoperitoneum. The uterus and adnexa are normal. The urinary bladder is unremarkable. The abdominal wall appears intact. There are no acute osseous abnormalities. There is unilateral right spondylolysis at the L5 level with no significant spondylolisthesis. IMPRESSION: 1. CHOLELITHIASIS WITH QUESTIONABLE GALLBLADDER WALL THICKENING. IF INDICATED , THIS COULD BE FURTHER ASSESSED WITH ABDOMEN ULTRASOUND. 2. THERE ARE NO OTHER ACUTE FINDINGS. 3. UNILATERAL RIGHT SPONDYLOLYSIS AT THE L5 LEVEL. JOB NUMBER: [id number] MTDD
[2019-01-06 07:16] LABS: ALB/GLOB RATIO 1.9 (1.1-1.8); ALBUMIN 3.9 g/dL (4.0-5.0); ALKALINE PHOSPHATASE 78 U/L (35-104); ALT/SGPT 8 U/L (<33); AST/SGOT 13 U/L (10.0-35.0); BLOOD UREA NITROGEN 11 mg/dL (6-20); CREATININE 0.7 mg/dL (0.5-0.9); EST GLOMERULAR FILTRATION RATE > 60 mL/min; GLUCOSE,RANDOM 89 mg/dL (74-109)
[2019-01-06] MEDS ORDERED: MECLIZINE 25 MG TABLET PO ONE (14:00)
[2019-01-06] MEDS ORDERED: METOCLOPRAMIDE 10 MG TABLET PO ONE (14:00)
[2019-01-06] MEDS ORDERED: ACETAMINOPHEN 1,000 MG/100 ML BTL IV ONE (14:00)
[2019-01-06] MEDS ORDERED: FAMOTIDINE 20MG TABLET PO ONE (14:00)
[2019-01-06] MEDS ORDERED: TRAMADOL HCL 50 MG TABLET PO PRN (15:41)
[2019-01-06] MEDS ORDERED: HYDROMORPHONE HCL 2 MG/ML VIAL IVP PRN (15:41)
[2019-01-06] MEDS ORDERED: KETOROLAC 30 MG/ML VIAL IVP ONE (19:18)
[2019-01-06] MEDS: ONDANSETRON HCL IV 4 MG/2 ML VIAL IVP PRN (19:41)
[2019-01-07] MEDS: ONDANSETRON HCL IV 4 MG/2 ML VIAL IVP PRN (03:34)
--- NOTE | 2019-01-15 12:40 | Operative Note ---
DATE OF SURGERY: 01/05/2019 Surgeon: Dmitriy Tong DO PREOPERATIVE DIAGNOSIS: Cholelithiasis with acute cholecystitis. POSTOPERATIVE DIAGNOSIS: Cholelithiasis with acute cholecystitis. OPERATION: Laparoscopic cholecystectomy. Indication: The patient is a 38-year-old female who is having ongoing right subcostal postprandial pain. She has had a history of recurrent biliary colic as well. She was seen in the ER last night where imaging studies were done. This did show findings consistent with acute cholecystitis. We did discuss cholecystectomy in detail. Risks, benefits, and alternatives were discussed. Risks include but are not limited to bleeding, infection, ductal injury, possible conversion to open, postoperative bile leak. She understood this fully. PROCEDURE: Thereafter, consent was signed and questions answered. She was taken to the operating room and placed in a supine position. General anesthesia was administered per the department of anesthesia. The patient's abdomen was prepped and draped in the usual sterile fashion. At this time, adequate timeout was performed. She received preoperative Ofiremv as well as DVT prophylaxis. At this time, the infraumbilical region was anesthetized with a total of 5 mL of 0.25% Sensorcaine with epinephrine. A 2 cm infraumbilical incision was made. This was carried down to the anterior rectus fascia. This was incised. Marie clamps were placed on the fascial edges and brought up into the wound. Stay sutures of 0 Vicryl were placed. Posterior rectus sheath was identified and incised. The peritoneal cavity was entered bluntly. At this time, a 10 mm blunt Uche port was placed. Adequate pneumoperitoneum was established. Under direct visualization, additional 5 mm epigastric and two 5 mm right subcostal ports were placed. The patient was then rotated into steep reverse Trendelenburg with rotation to left. The gallbladder was identified. It was noted to be very edematous and inflamed. This was retracted in a cephalad and lateral direction opening up the angle of Calot. The hepatocystic triangle was thoroughly dissected out. There was no aberrant anatomy, no posterior ductal structures. The distal half of the gallbladder was released from the liver plate elongating a retroductal window. The cystic duct and cystic artery were circumferentially skeletonized. The cystic artery was taken down with the Jordan harmonic. The cystic duct was triply clipped and cut in a standard fashion. Gallbladder essentially peeled off the liver bed. This was placed in an EndoCatch bag and brought out through the umbilical port. Right upper quadrant was rechecked and found to be hemostatic. No bleeding. No bile leak. No bowel injury noted. The patient was leveled out. The pneumoperitoneum was released. All ports were removed. The fascia was closed with 0 Vicryl in a [id number] fashion. The skin at all ports was closed with 4-0 Vicryl. The patient was taken to the recovery room in satisfactory condition. FINDINGS AT THE TIME OF SURGERY: Acute cholecystitis. CC: OMEGA Pedro
== END 2019-01-07 09:50 | disposition home or self-care (01) ==
LOC: ER 23:17 → SUR 01-06 02:17 → MEDSURG 01-06 02:17 → UNDOADMOB 01-06 02:17 → MEDSURG 01-06 02:17 → ER 01-06 02:18 → MEDSURG 01-07 09:50 → SUR 01-07 09:50
PROVIDERS: ATTEND Surgery
DX: K81.9 Cholecystitis, unspecified (principal); R07.9 Chest pain, unspecified; M25.511 Pain in right shoulder; R11.0 Nausea; F17.210 Nicotine dependence, cigarettes, uncomplicated; Z87.442 Personal history of urinary calculi
CPT/HCPCS: 47562; 00790; 99285 ×2; 96376; 96365; 96375; 83690; 85025; 80053; 81003; 74176; 93005; 93010; J1885 ×2; J2405 ×3; J3010; J1170; J0330; J2543; J2710; J7030